=== PATIENT | female | born 1980 | race Caucasian/White ===

== ENCOUNTER 2022-10-07 10:47 | Emergency (ER) | payer OTHER ==
[~2022-10-07] VITALS: Ht 167.6 cm; Wt 90.7 kg
[2022-10-07 11:12] VITALS: BP_SYST 142
[2022-10-07] MEDS ORDERED: ONDANSETRON 4 MG ODT TAB PO ONE ×2 (11:30→14:15)
--- NOTE | 2022-10-07 11:33 | NUR ---
Patient to [facility] for evaluation. Side rails up. Report given to Yvonne.
--- NOTE | 2022-10-07 11:40 | NUR ---
ER at bedside examining patient.
--- NOTE | 2022-10-07 11:46 | NUR ---
Pt bib self from home [facility] x2 days Pt notes hernia 1 year ago removed surgically. Pt complains of pain is same spot central to abdomen behind umbilicus.
[2022-10-07 12:03] LABS: BASOPHILS % (AUTO) 0.3 % (0.0-2.0); EOSINOPHILS % (AUTO) 0.1 % (0.0-4.0); HEMOGLOBIN 14.2 g/dL (12.0-16.0); LYMPHOCYTES # (AUTO) 0.9 K/uL (1.0-5.5); LYMPHOCYTES % (AUTO) 7.8 % (20.5-51.5); MEAN CORPUSCULAR HEMOGLOBIN 27 pg (27-31); MEAN CORPUSCULAR HGB CONC 34 % (32-36); MEAN CORPUSCULAR VOLUME 79 fL (79.0-98.0); MONOCYTES # (AUTO) 0.5 K/uL (0.0-1.0); MONOCYTES % (AUTO) 4.6 % (1.7-9.3); NEUTROPHILS # (AUTO) 10.1 K/uL (1.8-7.7); NEUTROPHILS % (AUTO) 87.2 % (40.0-70.0); PLATELET COUNT (AUTO) 292 K/uL (130-430); RED BLOOD CELL COUNT(AUTO) 5.29 MIL/uL (4.2-6.2); RED CELL DISTRIBUTION WIDTH 13.6 % (9.0-15.0); WHITE BLOOD COUNT (AUTO) 11.6 K/uL (4.8-10.8)
[2022-10-07 12:41] LABS: BILIRUBIN,URINE 1+ (NEGATIVE); BLOOD, URINE 3+ (NEGATIVE); CLARITY/URINE SL CLOUDY (CLEAR); COLOR,URINE RED (YELLOW); GLUCOSE,URINE NEGATIVE (NEGATIVE); KETONES,URINE 1+ (NEGATIVE); LEUKOCYTE ESTERASE ,URINE TRACE (NEGATIVE); NITRITE, URINE POSITIVE (NEGATIVE); PH,URINE 6.5 (5.0-8.0); PROTEIN URINE 2+ (NEGATIVE); UROBILINOGEN,URINE 0.2 (0.2-1.0)
[2022-10-07 12:42] LABS: RBC,URINE >100 /HPF (0-3)
[2022-10-07 12:43] LABS: BACTERIA,URINE FEW /HPF (None Seen); MUCUS,URINE 1+ /LPF (None Seen)
[2022-10-07 12:48] LABS: ANION GAP 11 (5-15); CALCIUM 8.4 mg/dL (8.4-11.0); CHLORIDE 97 mmol/L (98-107); CREATININE 0.86 mg/dL (0.55-1.30); GLUCOSE 144 mg/dL (70-99); UREA NITROGEN, BLOOD 14 mg/dL (8-21)
[2022-10-07 12:58] LABS: ALANINE AMINOTRANSFERASE 36 U/L (12-78); ALBUMIN 3.7 g/dL (3.4-4.8); AMYLASE 28 U/L (0-100); ASPARTATE AMINOTRANSFERASE 24 U/L (10-37); C-REACTIVE PROTEIN QUANT 15.4 mg/dL (0-0.5); LACTATE DEHYDROGENASE 207 U/L (81-234); LIPASE 96 U/L (73-393); TOTAL BILIRUBIN 0.8 mg/dL (0.0-1.0)
[2022-10-07 13:05] LABS: GFR AFRICAN AMERICAN 93 mL/min (>90)
[2022-10-07 13:42] LABS: ACETONE, SERUM NEGATIVE (NEGATIVE)
[2022-10-07] MEDS ORDERED: cefTRIAXone 1 GM in LIDOCAINE 1%, 20 ML MDV 2.1 ML IM ONE (14:15)
[2022-10-07] MEDS ORDERED: IBUP-1969 PO (14:17)
[2022-10-07] MEDS ORDERED: NITR-85 PO (14:17)
--- NOTE | 2022-10-07 15:02 | NUR ---
Patient given written and verbal discharge instructions and verbalizes understanding. ER MD discussed with patient the results and treatment provided. Patient in stable condition. ID arm band removed. Patient educated on pain management and to follow up with PMD. Opportunity for questions provided and answered. Medication side effect fact sheet provided.
[2022-10-07 15:03] VITALS: BP_SYST 142
== END 2022-10-07 15:02 | disposition home or self-care (01) ==
LOC: SED 10:47
DX: N39.0 Urinary tract infection, site not specified (principal); K52.9 Noninfective gastroenteritis and colitis, unspecified; R11.2 Nausea with vomiting, unspecified; R10.9 Unspecified abdominal pain; Z79.899 Other long term (current) drug therapy
CPT/HCPCS: 99284; 74176; 80053; 81000; 82009; 82150; 84703; 83615; 83690; 85025; 86140; 87086; 36415; 76376; 96372; 83605; Q0162; J0696; J2001

== ENCOUNTER 2023-08-10 17:18 | Emergency (ER) | payer OTHER ==
[~2023-08-10] VITALS: Ht 165.1 cm; Wt 127.9 kg
[~2023-08-10 17:18] MED LIST: IBUP-1969 PO; NITR-85 PO
[2023-08-10 17:25] VITALS: BP_SYST 207; PULSE 80; RESP 18; TEMP 98.3; O2SAT 98
[2023-08-10] MEDS ORDERED: MORPHINE 4 MG INJ. 4 MG/ML VIAL IVP ONE (18:00)
[2023-08-10 18:26] LABS: CALCIUM 8.6 mg/dL (8.4-11.0); CREATININE 0.81 mg/dL (0.55-1.30)
[2023-08-10 18:31] LABS: ALBUMIN 3.3 g/dL (3.4-4.8); TOTAL BILIRUBIN 0.3 mg/dL (0.0-1.0); TOTAL PROTEIN, SERUM 6.9 g/dL (6.4-8.3)
[2023-08-10 18:35] LABS: HEMATOCRIT 36.4 % (36-48); HEMOGLOBIN 12.2 g/dL (12.0-16.0); MEAN CORPUSCULAR HEMOGLOBIN 27 pg (27-31); MEAN CORPUSCULAR HGB CONC 34 % (32-36); MEAN CORPUSCULAR VOLUME 80 fL (79.0-98.0); PLATELET COUNT (AUTO) 375 K/uL (130-430); RED BLOOD CELL COUNT(AUTO) 4.58 MIL/uL (4.2-6.2); WHITE BLOOD COUNT (AUTO) 9.1 K/uL (4.8-10.8)
[2023-08-10 18:38] LABS: POTASSIUM 3.5 mmol/L (3.5-5.1)
[2023-08-10 18:48] LABS: BAND % (MANUAL) 1 % (0-6); BASOPHILS % (MANUAL) 0 % (0-2); EOSINOPHILS % (MANUAL) 3 % (0-7); LYMPHOCYTES % (MANUAL) 26 % (20-46); MONOCYTES % (MANUAL) 6 % (0-11)
[2023-08-10] MEDS ORDERED: NACL 0.9% 1,000 ML IV ONE (19:00)
[2023-08-10 19:13] LABS: BILIRUBIN,URINE NEGATIVE (NEGATIVE); BLOOD, URINE NEGATIVE (NEGATIVE); CLARITY/URINE CLEAR (CLEAR); COLOR,URINE YELLOW (YELLOW); GLUCOSE,URINE NEGATIVE (NEGATIVE); KETONES,URINE NEGATIVE (NEGATIVE); LEUKOCYTE ESTERASE ,URINE NEGATIVE (NEGATIVE); NITRITE, URINE NEGATIVE (NEGATIVE); PH,URINE 6.5 (5.0-8.0); PROTEIN URINE TRACE (NEGATIVE)
[2023-08-10] MEDS ORDERED: MAG-AL HYDROX/SIMETH 30 ML UDC PO ONE (20:30)
[2023-08-10] MEDS ORDERED: FAMOTIDINE 20 MG TABLET PO ONE (20:30)
[2023-08-10] MEDS ORDERED: OMEP40CA20 PO (21:22)
[2023-08-10 21:35] VITALS: BP_SYST 147; PULSE 80; RESP 20; TEMP 98.1; O2SAT 95
== END 2023-08-10 21:35 | disposition home or self-care (01) ==
LOC: SED 17:18
DX: R10.33 Periumbilical pain (principal); R11.0 Nausea; I10 Essential (primary) hypertension; Z88.8 Allergy status to other drugs, medicaments and biological substances; Z79.899 Other long term (current) drug therapy
CPT/HCPCS: 99285; 74176; 96374; 85027; 80053; 83690; 85007; 84484; 36415; 93005; 76376; 81003; J2270

== ENCOUNTER 2024-03-11 18:01 | Emergency (ER) | payer SELFPAY ==
[~2024-03-11] VITALS: Ht 165.1 cm; Wt 127.0 kg
[~2024-03-11 18:01] MED LIST changes: +OMEP40CA20 PO
[2024-03-11 18:43] VITALS: BP_SYST 144; PULSE 90; RESP 16; TEMP 98.2; O2SAT 97
[2024-03-11] MEDS: ACETAMINOPHEN 500 MG TABLET PO ONE (19:56)
[2024-03-11] MEDS ORDERED: IBUP-1969 PO (21:16)
[2024-03-11] MEDS ORDERED: DICL20GE TP (21:16)
[2024-03-11] MEDS: KETOROLAC TROMETHAMINE 30 MG VIAL IM ONE (21:24)
[2024-03-11 21:25] VITALS: BP_SYST 132; PULSE 81; RESP 18; TEMP 98.2; O2SAT 97
== END 2024-03-11 21:25 | disposition home or self-care (01) ==
LOC: SED 18:01
DX: S46.912A Strain of unspecified muscle, fascia and tendon at shoulder and upper arm level, left arm, initial encounter (principal); R51.9 Headache, unspecified; M54.2 Cervicalgia; I10 Essential (primary) hypertension; Z88.5 Allergy status to narcotic agent; Z88.8 Allergy status to other drugs, medicaments and biological substances; Z79.899 Other long term (current) drug therapy; V89.2XXA Person injured in unspecified motor-vehicle accident, traffic, initial encounter; Y93.89 Activity, other specified; Y92.89 Other specified places as the place of occurrence of the external cause; Y99.8 Other external cause status
CPT/HCPCS: 99285; 70450; 73030; 72125; 96372; J1885